=== PATIENT | female | born 1995 | race Caucasian/White ===

== ENCOUNTER 2016-09-13 18:30 | Outpatient (CLI) | payer MEDICAID ==
[~2016-09-13 18:30] MED LIST: AUGMENTIN875 MG PO; PRENATAL VIT1 TAB PO
[2016-11-22] MEDS ORDERED: NIPPLECREAM TP (19:18)
[2016-11-22] MEDS ORDERED: MOTRIN-DPS800 MG PO (19:18)
[2016-11-22] MEDS ORDERED: PRENATAL VIT1 TAB PO (19:18)
== END 2016-09-13 20:10 | disposition home or self-care (01) ==
LOC: BC 18:30 → 2LDRP 18:30 → BC 20:10 → 2LDRP 20:10
DX: O99.89 Other specified diseases and conditions complicating pregnancy, childbirth and the puerperium (principal); R10.2 Pelvic and perineal pain; Z3A.33 33 weeks gestation of pregnancy

== ENCOUNTER → 2016-10-12 | Outpatient (CLI) | payer MEDICAID ==
[~2016-10-12] MED LIST changes: +MOTRIN-DPS800 MG PO; +NIPPLECREAM TP
== END | disposition home or self-care (01) ==
LOC: RAD.S 14:22
DX: O26.843 Uterine size-date discrepancy, third trimester (principal); Z3A.32 32 weeks gestation of pregnancy

== ENCOUNTER 2016-11-18 10:30 | Outpatient (CLI) | payer MEDICAID ==
[~2016-11-18 10:30] MED LIST changes: -MOTRIN-DPS800 MG PO; -NIPPLECREAM TP
[2016-11-22] MEDS ORDERED: MOTRIN-DPS800 MG PO (19:18)
[2016-11-22] MEDS ORDERED: PRENATAL VIT1 TAB PO (19:18)
[2016-11-22] MEDS ORDERED: NIPPLECREAM TP (19:18)
== END 2016-11-18 15:50 | disposition home or self-care (01) ==
LOC: BC 10:30 → 2LDRP 10:30 → BC 15:50
DX: O99.89 Other specified diseases and conditions complicating pregnancy, childbirth and the puerperium (principal); R10.9 Unspecified abdominal pain; Z3A.38 38 weeks gestation of pregnancy

== ENCOUNTER 2016-11-19 13:30 | Inpatient (IN) | payer MEDICAID ==
[~2016-11-19] VITALS: Ht 160 cm; Wt 89.4 kg
[2016-11-22] MEDS ORDERED: PRENATAL VIT1 TAB PO (19:18)
[2016-11-22] MEDS ORDERED: NIPPLECREAM TP (19:18)
[2016-11-22] MEDS ORDERED: MOTRIN-DPS800 MG PO (19:18)
--- NOTE | 2016-12-03 08:10 | HP ---
ADMIT: 11/19/2016 RM/LOC: 227 [facility] MR#: [id number] 2620 [facility] [address] [place], [place] [id number] VERONICA POP 15[address] [facility] [address] [place] [address] History and Physical SEX: F AGE: 21 : 1995 DATE OF SERVICE: CHIEF COMPLAINT: Contractions. HISTORY OF PRESENT ILLNESS: Veronica is a very pleasant 21-year-old Jurgen female, 2, para 0 with a current intrauterine at 38 weeks and 4/7 days, who presented to Labor and Delivery with the above complaints. Contractions actually started yesterday. The patient presented and made minimal change, thought to be in early labor and sent home. She presented again today with worsening contractions, found to be about 5 cm dilated. She was admitted for expectant management. Over the course of the early afternoon, she has had irregular contractions, but has made some slow progressive change. Her last cervical check was a few hours ago and she was 6 cm. heart tones have been reassuring. She has since gotten her epidural that is quite comfortable. She has not been rechecked. No leakage of fluid and membranes thought to be still intact. The patient did recently see me in the clinic, had a rash of intertrigo. She has been treating that with topical nystatin. Very early on in , she did have an inguinal abscess that she actually had to be admitted for, IV antibiotics, and that did grow out an E coli. She has no other active lesions and has not had further problems with this since early on. She is group B strep negative. PAST MEDICAL HISTORY: Benign. MEDICATIONS: vitamin. ALLERGIES: NO KNOWN DRUG ALLERGIES. LAB: O positive, antibody negative, serology nonreactive, HIV negative, GC/Chlamydia negative, hepatitis B surface antigen negative, GBS negative. PREVIOUS OB HISTORY: The patient has had one spontaneous miscarriage. PAST SURGICAL HISTORY: Benign. SOCIAL HISTORY: No alcohol, drug, or tobacco use. Father of baby is involved. FAMILY HISTORY: Noncontributory. REVIEW OF SYSTEMS: A 10-point review of systems obtained, per HPI, otherwise negative. PHYSICAL EXAMINATION: VITAL SIGNS: Blood pressure 106/73, pulse 92, respirations 16, and temperature 97.5. GENERAL: Alert and oriented x3. Does not appear in any acute distress. ADMIT: 11/19/2016 RM/LOC: 227 [facility] MR#: [id number] [address] [id number] VERONICA POP [address] [facility] [address] [place] [address] History and Physical SEX: F AGE: 21 : 1995 HEENT: Pupils equal, round, and reactive. Extraocular muscles are intact. Throat clear. Trachea midline. HEART AND LUNG: Examination was deferred at this time. ABDOMEN: Gravid. EXTREMITIES: With trace edema bilaterally, symmetric. Cervical exam shows 7 cm dilated, 90% effaced, and 0 station with head engaged in bulging bag. Tocometer shows contractions every 3 to 5 or so, but difficult to mushroom picker. heart tones category I. LABS: Urine protein, glucose negative. ASSESSMENT/PLAN: A 21-year-old, 2, para 1, with; 1. Intrauterine at 38 weeks and 4/7 days. 2. Active labor. 3. Labor dystocia, mild. 4. GBS negative. 5. Intertrigo, candidal groin infection. 6. Artificial rupture of membranes performed. Clear fluid noted. Overall everything looks reassuring at this time. We will continue routine monitoring and expectant management. If makes minimal change, we will need to augment labor with Pitocin, but we will try to hold off on this if possible. Andres Gonzales MD/ rozina JOB #: [id number] CC: Andres Gonzales, Attending Physician Andres Gonzales, Family Physician
--- NOTE | 2016-12-03 08:10 | OR ---
ADMIT: 11/19/2016 RM/LOC: 227 [facility] MR#: [id number] [address] [facility] [address] [place] [id number] CATHIE YANES HUSEYIN [address] [facility] [address] [place] [address] Operative/Delivery Room Report SEX: F AGE: 21 : 1995 Corrected: 11/21/2016 0622 nj SURGERY DATE: 11/19/2016 SURGEON: nAdres Gonzales MD PREOPERATIVE DIAGNOSES: 1. Intrauterine at 38 weeks and 4/7 days. 2. Active labor. 3. Labor dystocia, mild. 4. GBS negative. POSTOPERATIVE DIAGNOSES: 1. Status post spontaneous vaginal delivery. 2. Small non bleeding vaginal outlet wall tear. 3. Intrauterine at 38 weeks and 4/7 days. 4. Active labor. 5. Labor dystocia, mild. 6. GBS negative. PROCEDURE: 1. Spontaneous vaginal delivery. 2. Epidural removal. FINDINGS: 1. Live-born infant female born at 2342 hours with a weight of 6 pounds 2 ounces (2770 g). Apgars of 9 and 9 at one and five minutes respectively. 2. An intact placenta with three-vessel cord. ANESTHESIA: Epidural. FLUIDS: Crystalloid. ESTIMATED BLOOD LOSS: 200 mL. COMPLICATIONS: None immediate. INDICATIONS FOR PROCEDURE: Please refer to dictated H and P. Briefly, a 21- year-old 2, para 0 with an intrauterine at 38 weeks and 4/7 days presented to Labor and Delivery with complaints of contractions. She was found to be more dilated than the previous day. She was admitted for routine expectant management for labor. The patient progressed very slowly over the course of the afternoon from about 5 cm to 6 cm and then finally to 7 cm at approximately 7 o'clock. She was evaluated at that time. An artificial rupture membranes was performed showing clear fluid at approximately 1925 hours. The patient made minimal manager exchange the next hour, however, then contractions started picking up and the patient progressed to being complete. She began pushing at approximately 10:50 p.m. Brought infant's vertex to the perineum over the course of that time. Continuous maternal routine monitoring was ADMIT: 11/19/2016 RM/LOC: 227 [facility] MR#: [id number] [address] [facility] [address] [place], [place] [id number] HUSEYIN POP [address] [facility] [address] [place] [address] Operative/Delivery Room Report SEX: F AGE: 21 : 1995 done throughout and was reassuring. DESCRIPTION OF THE PROCEDURE: The patient was in the dorsal lithotomy position and draped in the usual fashion. 's vertex was noted to be on the perineum. The patient was asked to push, delivering the infant's head in the OA position. After restitution of the head, the left anterior shoulder followed by the posterior shoulder and remainder of the was down without difficulty. Infant was noted to be vigorous and crying immediately. Nares and mouth were bulb-suctioned. Infant dried, held below maternal pelvis for approximately 30 to 45 seconds. Infant was then transferred to maternal abdomen, where nursing personnel were in attendance. Cord was clamped and cut x2 and cut by the father at the bedside. Cord blood was then obtained. Placenta delivered intact in less than 5 minutes. Twenty units of Pitocin was started in IV bag to help firm the uterus. Attention was then turned to the vaginal vault and cervix, which was noted to have just a small outlet laceration at approximately 6 o'clock position. This was not bleeding. She did also have this mild tear of the labia minora and vaginal wall on the right side. Again, minimal bleeding and no stitches were needed at this time, it was determined. Attention was turned to the perineum which was noted to be free of laceration. Uterus was palpated and noted to be firm. Sponge and needle counts were correct. There were no major complications with the procedure. Epidural was then removed without difficulty. Noted to be intact with a blue tipped. and mother were in stable condition recovering. Andres Gonzales MD/ rozina JOB #: [id number] CC: Andres Gonzales, Attending Physician Andres Gonzales, Family Physician Corrected: 11/21/2016 0622 njv
--- NOTE | 2017-01-08 07:59 | DS ---
ADMIT: 11/19/2016 RM/LOC: 227 [facility] MR#: [id number] 2620 [facility] [address] [place], [place] [id number] HUSEYIN POP 1524 [facility] [address] [place] [address] General Discharge Summary SEX: F AGE: 21 : 1995 ADMISSION DATE: 11/19/2016 DISCHARGE DATE: 11/21/2016 FINAL DIAGNOSES: 1. Intrauterine at 38 weeks 4/7 days. 2. Status post spontaneous vaginal delivery. 3. Mild labor dystocia. 4. GBS negative. 5. Small non-bleeding vaginal outlet wall tear. 6. Delivery of a live born infant female born at 2342 hours with a weight of 6 pounds 2 ounces (2770 g). scores of 9 and 9 at 1 and 5 minutes respectively. Andres Gonzales MD/ modl JOB #: [id number] CC: Andres Gonzales MD, Attending Physician Andres Gonzales MD, Family Physician
== END 2016-11-21 19:40 | disposition home or self-care (01) | DRG 775 ==
LOC: 2LDRP 13:30 → BC 13:30 → 2LDRP 13:31
PROVIDERS: ADMIT Family Medicine
PROC: 10907ZC Drainage of Amniotic Fluid, Therapeutic from Products of Conception, Via Natural or Artificial Opening (ICD-10-PCS; principal; 2016-11-19)
PROC: 10E0XZZ Delivery of Products of Conception, External Approach (ICD-10-PCS; principal; 2016-11-19)
DX: O62.2 Other uterine inertia (principal); O99.72 Diseases of the skin and subcutaneous tissue complicating childbirth; L30.4 Erythema intertrigo; Z3A.38 38 weeks gestation of pregnancy; Z37.0 Single live birth